=== PATIENT | male | born 1995 | race American Indian/Alaskan Native ===

== ENCOUNTER 2020-04-07 08:34 | Emergency (ER) | payer SELFPAY ==
[2020-04-07 08:40] VITALS: BP 126/86
--- NOTE | 2020-04-07 11:35 | XRay Report ---
HISTORY:MAIN COMPARISON: None. TECHNIQUE: AP lateral and obliques views were obtained FINDINGS: Bones: Fracture of the base of the distal phalanx first digit noted. This extends into the articular space. Joint spaces: Maintained. Soft tissues: No significant abnormality. Additional findings: None. IMPRESSION: 1. Fracture first digit Signer Name: Vickey Rao MD Signed: 04/07/2020 11:31 AM Workstation Name: [id number]
[2020-04-07] MEDS ORDERED: DIPHtheria,PERTUSSIS(ACELL),TETANUS VACCINE/PF 0.5 ML VIAL IM ONE (11:46)
[2020-04-07] MEDS ORDERED: KETOROLAC 30 MG/1 ML INJ IV ONE (11:47)
[2020-04-07] MEDS ORDERED: LIDOCAINE (2%) 20 MG/1 ML VIAL 20 ML MDV INFILTRATI ONE (12:17)
--- NOTE | 2020-04-07 12:20 | Emergency Department Report ---
ED Lower Extremity HPI - General Chief Complaint: Extremity Injury, Lower Stated Complaint: RT WOUND TOE Time Seen by Provider: 04/07/20 11:39 Source: patient Mode of arrival: Ambulatory Limitations: No Limitations - History of Present Illness Initial Comments: This is a 24-year-old male nontoxic, well nourished in appearance, no acute signs of distress presents to the ED with c/o of right great toe pain that occurred this morning around 2 AM. Patient stated that he hit his toe while falling. Patient denies any other trauma. Patient denies any numbness, tingling, fever, chills, nausea, vomiting, chest pain, shortness of breath, headache, stiff neck. Patient denies any joint swelling or joint redness. Patient denies decreased range of motion. Patient stated has decreased gait due to pain. Patient denies any allergies or significant past medical history. Denies being UTD with tetanus. MD Complaint: fall -: This morning Injury: Foot: Right Severity: moderate Severity scale (0 -10): 8 Improves With: immobilization Worsens With: weight bearing, movement, palpation Context: fall, direct blow Associated Symptoms: able to partially bear weight. denies: snap/pop sensation, swelling, numbness, tingling, unable to bear weight - Related Data Previous Rx's Medication Instructions Recorded Last Taken Type Acetaminophen/Codeine [Tylenol 1 tab PO Q6H PRN #12 tab 04/07/20 Unknown Rx /Codeine # 3 tab] cephALEXin [Keflex] 500 mg PO Q6HR #28 capsule 04/07/20 Unknown Rx Allergies Allergy/AdvReac Type Severity Reaction Status Date / Time No Known Allergies Allergy Unverified 04/07/20 08:36 ED Review of Systems ROS: Stated complaint: RT WOUND TOE Other details as noted in HPI Constitutional: denies: chills, fever Eyes: denies: eye pain, eye discharge, vision change ENT: denies: ear pain, throat pain Respiratory: denies: cough, shortness of breath, wheezing Cardiovascular: denies: chest pain, palpitations Endocrine: no symptoms reported Gastrointestinal: denies: abdominal pain, nausea, diarrhea Genitourinary: denies: urgency, dysuria Musculoskeletal: denies: back pain, joint swelling, arthralgia Skin: denies: rash, lesions Neurological: denies: headache, weakness, paresthesias Psychiatric: denies: anxiety, depression Hematological/Lymphatic: denies: easy bleeding, easy bruising ED Past Medical Hx - Past Medical History Previous Medical History?: No - Surgical History Past Surgical History?: No Additional Surgical History: KNEE - Social History Smoking Status: Current Every Day Smoker Substance Use Type: Alcohol - Medications Home Medications: Home Medications Medication Instructions Recorded Confirmed Last Taken Type Acetaminophen/Codeine [Tylenol 1 tab PO Q6H PRN #12 tab 04/07/20 Unknown Rx /Codeine # 3 tab] cephALEXin [Keflex] 500 mg PO Q6HR #28 capsule 04/07/20 Unknown Rx ED Physical Exam - General Limitations: No Limitations General appearance: alert, in no apparent distress - Head Head exam: Present: atraumatic, normocephalic - Eye Eye exam: Present: normal appearance - Neck Neck exam: Present: normal inspection, full ROM - Respiratory Respiratory exam: Absent: respiratory distress - Cardiovascular Cardiovascular Exam: Present: regular rate - Extremities Exam Extremities exam: Present: normal inspection, full ROM, tenderness, normal ca pillary refill. Absent: joint swelling - Expanded Lower Extremity Exam Right Hip exam: Present: normal inspection, full ROM. Absent: tenderness, swelling Upper Leg exam: Present: normal inspection, full ROM. Absent: tenderness, swelling Knee exam: Present: normal inspection, full ROM. Absent: tenderness, swelling Lower Leg exam: Present: normal inspection, full ROM. Absent: tenderness, swelling Ankle exam: Present: normal inspection, full ROM. Absent: tenderness, swelling Foot/Toe exam: Present: full ROM, tenderness, laceration (2 cm). Absent: swelling, abrasion, ecchymosis, deformity, crepidus, dislocation, erythema, amputation, puncture wound, foreign body, calcaneal tenderness, tenderness at base of 5th metatarsal, nail avulsion, subungual hematoma Neuro vascular tendon exam: Present: no vascular compromise Gait: Positive: observed and limited by pain 1 - 2 cm lac present with no bone exposure, no foreign body noted - Back Exam Back exam: Present: normal inspection, full ROM. Absent: tenderness, CVA tenderness (R), CVA tenderness (L), muscle spasm, paraspinal tenderness, vertebral tenderness, rash noted - Neurological Exam Neurological exam: Present: alert, oriented X3, normal gait - Psychiatric Psychiatric exam: Present: normal affect, normal mood - Skin Skin exam: Present: warm, dry, intact, normal color. Absent: rash ED Course Vital Signs 04/07/20 08:38 Temperature 98.0 F Pulse Rate 80 Respiratory 18 Rate Blood Pressure 126/86 O2 Sat by Pulse 97 Oximetry - Reevaluation(s) Reevaluation #1: 04/07/20 12:20 Patient is speaking in full sentences with no signs of distress noted. - Consultations Consultation #1: 04/07/20 12:20 Patient has been consulted with Dr. Nair about patient history, physical exam, and imaging studies and agrees to ED plan of care and discharge plan of care. - Laceration /Wound Repair Right Toe Wound Location: lower extremity (Right great toe) Wound Length (cm): 2 Wound's Depth, Shape: superficial Wound Explored: clean Irrigated w/ Saline (ccs): 40 Betadine Prep?: Yes Volume Anesthetic (ccs): 6 (2% lidocaine plain) Wound Repaired With: sutures Suture Size/Type: 4:0, proline Number of Sutures: 5 Layer Closure?: No Sterile Dressing Applied?: Yes Progress: Under sterile field, I used Betadine to clean the area. I then used 40 mL of normal saline to flush the area. I then used 2% lidocaine plain and injected 6 mL to the wound. I then used a 4-0 Prolene to suture the laceration. Number of stitches 5. I then applied a sterile 4 x 4 with tape. Minimal bleeding noted but is under control. Patient tolerated procedure well with no signs of distress. ED Lower Extremity MDM - Radiology Data Referring Physician: AARON HILL Patient Name: JAIME GARY Date of : 1995 Sex: Male Report Date: 2020-04-07 Report Status: Finalized [facility], [place] [address] [place] [address] XRay Report Signed Patient: JAIME GARY MR#: [id number] : 1995 Acct:[id number] Age/Sex: 24 / M ADM Date: 04/07/20 Loc: ED Attending Dr: Ordering Physician: AARON HILL Date of Service: 04/07/20 Procedure(s): XR foot 3+V RT Accession Number(s): [id number] cc: AARON HILL Fluoro Time In Minutes: HISTORY:MAIN COMPARISON: None. TECHNIQUE: AP lateral and obliques views were obtained FINDINGS: Bones: Fracture of the base of the distal phalanx first digit noted. This extends into the articular space. Joint spaces: Maintained. Soft tissues: No significant abnormality. Additional findings: None. IMPRESSION: 1. Fracture first digit Signer Name: Vickey Rao MD Signed: 04/07/2020 11:31 AM Workstation Name: [id number] Transcribed By: WG Dictated By: Vickey Rao MD Electronically Authenticated By: Vickey Rao MD Signed Date/Time: 04/07/20 1131 DD/ 1126 TD/TT: - Medical Decision Making This is a 24-year-old male that presents with laceration with toe fracture. Patient is stable and was examined by me. The laceration suturing has been performed and has been performed and patient tolerated well. A sterile dressing has been applied. Patient was educated on proper wound care. Patient was treated for open bone fracture due to laceration and fracture with Ancef 2 g IV. Patient is discharged with Keflex and Tylenol with codeine and was instructed not to operate any machinery while taking Tylenol with codeine due to drowsiness. Patient was instructed to return in 10 days for suture removal. Patient received albert splint to great toe and with the lesser toe. Patient does have a orthopedic postop shoe that he came in with to the ER so patient was instructed to keep wearing it until cleared by orthopedic. Patient was instructed to refer to Follow-up with a orthopedic doctor in 3-5 days or if symptoms worsen and continue return to emergency room as soon as possible. At time of discharge, the patient does not seem toxic or ill in appearance. No acute signs of distress noted. Patient agrees to discharge treatment plan of ca re. No further questions noted by the patient. Critical care attestation.: If time is entered above; I have spent that time in minutes in the direct care of this critically ill patient, excluding procedure time. ED Disposition Clinical Impression: Laceration Fracture of great toe, right, open Qualifiers: Encounter type: initial encounter Phalanx: proximal Fracture alignment: nondisplaced Qualified Code(s): S92.414B - Nondisplaced fracture of proximal phalanx of right great toe, initial encounter for open fracture Disposition: TO HOME OR SELFCARE Is pt being admited?: No Does the pt Need Aspirin: No Condition: Stable Instructions: Laceration (ED), Suture Care (ED), Toe Fracture (ED), RICE Therapy (ED) Additional Instructions: Follow-up with a orthopedic doctor in 3-5 days or if symptoms worsen and continue return to emergency room as soon as possible. No physical activity that extremity until cleared by orthopedic doctor Prescriptions: cephALEXin [Keflex] 500 mg PO Q6HR #28 capsule Acetaminophen/Codeine [Tylenol /Codeine # 3 tab] 1 tab PO Q6H PRN #12 tab PRN Reason: Pain , Severe (7-10) Referrals: PRIMARY MD NIKKI [Primary Care Provider] - 3-5 Days DANNIELLE FERNÁNDEZ MD [Staff Physician] - 3-5 Days Forms: Work/School Release Form(ED)
== END 2020-04-07 13:23 | disposition home or self-care (01) ==
LOC: ED 08:34
DX: S92.414A Nondisplaced fracture of proximal phalanx of right great toe, initial encounter for closed fracture (principal); F17.200 Nicotine dependence, unspecified, uncomplicated; Z79.899 Other long term (current) drug therapy; Z98.890 Other specified postprocedural states; W18.30XA Fall on same level, unspecified, initial encounter; Y93.89 Activity, other specified; Y92.89 Other specified places as the place of occurrence of the external cause; Y99.8 Other external cause status
CPT/HCPCS: 12001; 73630; 90471; 90715; 96365; 96375; 99283; J0690; J1885